=== PATIENT | female | born 1990 | race Caucasian/White ===

== ENCOUNTER 2018-02-09 14:00 | Emergency (ER) | payer MEDICAID ==
[~2018-02-09] VITALS: Ht 162.6 cm; Wt 90.0 kg
[~2018-02-09 14:00] MED LIST: PANT40TA4 PO
[2018-02-09] MEDS ORDERED: TRAM50TA2 PO (14:39)
[2018-02-09 15:10] VITALS: BP 121/68
== END 2018-02-09 15:13 | disposition home or self-care (01) ==
LOC: ER 14:00
DX: S76.911A Strain of unspecified muscles, fascia and tendons at thigh level, right thigh, initial encounter (principal); Z88.6 Allergy status to analgesic agent; Z88.1 Allergy status to other antibiotic agents; Z98.51 Tubal ligation status; X58.XXXA Exposure to other specified factors, initial encounter; Y93.01 Activity, walking, marching and hiking; Y92.89 Other specified places as the place of occurrence of the external cause; Y99.8 Other external cause status
CPT/HCPCS: 99284

== ENCOUNTER 2018-04-01 15:44 | Emergency (ER) | payer MEDICAID ==
[~2018-04-01] VITALS: Ht 162.6 cm; Wt 75.0 kg
[2018-04-01 15:50] VITALS: BP 109/69
[2018-04-01] MEDS ORDERED: DICL100G15 TOP (16:56)
== END 2018-04-01 17:16 | disposition home or self-care (01) ==
LOC: ER 15:45
DX: M77.8 Other enthesopathies, not elsewhere classified (principal); M25.522 Pain in left elbow; Z88.1 Allergy status to other antibiotic agents; Z88.6 Allergy status to analgesic agent; Z98.51 Tubal ligation status; X58.XXXA Exposure to other specified factors, initial encounter; Y93.89 Activity, other specified; Y92.89 Other specified places as the place of occurrence of the external cause; Y99.8 Other external cause status
CPT/HCPCS: 73080; 99283

== ENCOUNTER → 2020-07-25 | Emergency (ER) | payer MEDICAID, OTHER ==
[~2020-07-25] VITALS: Ht 162.6 cm; Wt 89.1 kg
[~2020-07-25] MED LIST changes: +DICL100G15 TOP; +IBUP-1984 PO; -PANT40TA4 PO; +PANT40TA54 PO; +ibuprofen tablet 400 MG TABLET PO ONE
[2020-07-25 21:12] VITALS: BP 103/61
== END | disposition home or self-care (01) ==
LOC: ER 21:10
DX: S63.681A Other sprain of right thumb, initial encounter (principal); Z98.51 Tubal ligation status; Z88.8 Allergy status to other drugs, medicaments and biological substances; Z79.899 Other long term (current) drug therapy; Z88.5 Allergy status to narcotic agent; W10.8XXA Fall (on) (from) other stairs and steps, initial encounter; Y93.89 Activity, other specified; Y92.89 Other specified places as the place of occurrence of the external cause; Y99.8 Other external cause status
CPT/HCPCS: 29125; 73130; 99283

== ENCOUNTER 2023-05-16 20:27 | Emergency (ER) | payer OTHER ==
[~2023-05-16] VITALS: Ht 162.6 cm; Wt 100.0 kg
[~2023-05-16 20:27] MED LIST changes: -IBUP-1984 PO; -ibuprofen tablet 400 MG TABLET PO ONE
[2023-05-16 20:32] VITALS: TEMP 99
[2023-05-16] MEDS ORDERED: BENZ-38 PO (22:35)
[2023-05-16 23:01] VITALS: BP 136/88; PULSE 90; RESP 18; O2SAT 98
== END 2023-05-16 23:02 | disposition home or self-care (01) ==
LOC: ER 20:28
DX: J20.9 Acute bronchitis, unspecified (principal); Z20.822 Contact with and (suspected) exposure to COVID-19
CPT/HCPCS: 36415; 71046; 87502; 87503; 87811; 99284

== ENCOUNTER 2023-10-16 17:41 | Emergency (ER) | payer OTHER, MEDICAID ==
[~2023-10-16] VITALS: Ht 162.6 cm; Wt 100.8 kg
[2023-10-16] MEDS: normal saline 1000ml 1,000 ML IV ONE (19:25)
[2023-10-16 19:43] LABS: BASOPHILS # (AUTO) 0.1 X10'3 (0-0.2); EOSINOPHILS # (AUTO) 0.1 X10'3 (0-0.9); EOSINOPHILS % (AUTO) 0.7 % (0-6); LYMPHOCYTES # (AUTO) 1.8 X10'3 (1.1-4.8); MONOCYTES # (AUTO) 0.4 X10'3 (0-0.9)
[2023-10-16 19:45] LABS: BASOPHILS % (AUTO) 0.8 % (0-1); HEMOGLOBIN 12.5 g/dl (12.0-16.0); MEAN CORPUSCULAR HEMOGLOBIN 31.4 PG (27.0-31.0); MEAN CORPUSCULAR HGB CONC 33.8 g/dL (33.0-36.5); MEAN PLATELET VOLUME 8.7 FL (7.4-10.4); MONOCYTES % (AUTO) 4.4 % (2-12); NEUTROPHILS # (AUTO) 7.6 X10'3 (1.8-7.7); NEUTROPHILS % (AUTO) 76.1 % (42-75); PLATELET COUNT 229 X10'3 (140-440); RED BLOOD COUNT 3.98 X10'6 (4.20-5.60); RED CELL DISTRIBUTION WIDTH 13.9 % (11.5-14.5)
[2023-10-16 19:50] LABS: ALBUMIN 3.2 G/DL (3.4-5.0); ANION GAP 7 (8-16); BLOOD UREA NITROGEN 9 MG/DL (7-18); BUN/CREATININE RATIO 11.7 (10.0-20.0); CALCIUM 8.1 MG/DL (8.5-10.1); CHLORIDE 105 MMOL/L (99-107); CREATININE 0.77 MG/DL (0.40-0.90); GLUCOSE 119 MG/DL (70-104); POTASSIUM 3.9 MMOL/L (3.5-5.1); PRO BRAIN NATRIURETIC PEPTIDE 247 PG/ML (0-125); SODIUM 140 MMOL/L (135-145); TOTAL CARBON DIOXIDE 28.3 MMOL/L (24-32); eCRCL 89 ML/MIN; eGFR 86 ML/MIN
[2023-10-16 20:06] VITALS: BP 98/65; PULSE 74; RESP 16; TEMP 98.6; O2SAT 98
== END 2023-10-16 20:09 | disposition home or self-care (01) ==
LOC: ER 17:42
DX: R60.0 Localized edema (principal); R07.89 Other chest pain; Z88.8 Allergy status to other drugs, medicaments and biological substances; Z79.899 Other long term (current) drug therapy; Z98.51 Tubal ligation status
CPT/HCPCS: 71045; 80048; 83880; 84484; 85025; 93005; 96360; 99285; J7030

== ENCOUNTER 2024-01-04 22:05 | Emergency (ER) | payer OTHER, MEDICAID ==
[~2024-01-04] VITALS: Ht 162.6 cm; Wt 98.5 kg
[2024-01-04] MEDS: ibuprofen tablet 400 MG TABLET PO ONE (22:59)
[2024-01-04] MEDS: acetaminophen 325mg tablet PO ONE (22:59)
[2024-01-04 23:53] VITALS: PULSE 43
[2024-01-05] MEDS: normal saline 1000ml 1,000 ML IV ONE (00:26)
[2024-01-05] MEDS: ondansetron/PF 4mg/2ml inj IV ONE (00:26)
[2024-01-05 01:13] VITALS: BP 98/48; RESP 44; TEMP 98.3; O2SAT 98
== END 2024-01-05 01:18 | disposition home or self-care (01) ==
LOC: ER 22:05
DX: R11.2 Nausea with vomiting, unspecified (principal); Z88.5 Allergy status to narcotic agent; Z88.1 Allergy status to other antibiotic agents; Z79.899 Other long term (current) drug therapy; Z98.51 Tubal ligation status
CPT/HCPCS: 93005; 96361; 96374; 99283; J2405; J7030